=== PATIENT | male | born 1955 | race Caucasian/White ===

== ENCOUNTER → 2021-09-12 07:54 | Outpatient (CLI) | payer MEDICARE, OTHER, SELFPAY ==
[2021-09-12 14:33] LABS: Basophils # 0.1 K/mm3 (0-0.2); Basophils % 0.8 % (0.1-2.0); Eosinophils # 0.2 K/mm3 (0.0-0.4); Eosinophils % 3.2 % (0.1-12.0); Lymphocytes # 1.7 K/mm3 (0.7-4.5); Lymphocytes % 28.2 % (10-50); Mean Corpuscular HGB Conc 31.7 g/dL (31.8-35.4); Mean Corpuscular Volume 101.1 fl (80-94); Monocytes # 0.3 K/mm3 (0.1-1.0); Monocytes % 5.5 % (1.7-9.3); Neutrophils # 3.7 K/mm3 (1.8-7.8); Neutrophils % 62.3 % (37.0-80.0); Platelet Count 254 K/mm3 (142-424); Red Blood Count 4.06 M/mm3 (4.60-6.20); White Blood Count 5.9 K/mm3 (4.8-10.8)
[2021-09-12 14:52] LABS: Hemoglobin A1C 5.4 % (4.0-6.0)
[2021-09-12 15:04] LABS: Alanine Aminotransferase 15 U/L (12-78); Albumin Level 3.9 g/dl (3.5-5.0); Albumin/Globulin Ratio 1.6 (1.1-1.8); Alkaline Phosphatase 50 U/L (38-126); Aspartate Amino Transferase 22 U/L (17-59); Bilirubin,Total 0.4 mg/dl (0.2-1.3); Blood Urea Nitrogen 22 mg/dl (9-20); Carbon Dioxide 24 mmol/L (22.0-30.0); Chloride 107 mmol/L (98-107); Chol/HDL Ratio 3.4 (1-3.5); Cholesterol 190 mg/dl (140-200); Estimated Glomerular Filt Rate 112 ml/min (>60); GFR (African American) 136 ML/MIN (>60); Globulin 2.5 g/dL (1.3-3.2); Glucose 95 mg/dl (74-100); HDL Cholesterol 56 mg/dl (40-60); Sodium 138 mmol/L (136-145); Total Protein,Serum 6.4 g/dl (6.3-8.2); Triglycerides 76 mg/dl (30-150); VLDL Cholesterol 15 mg/dL (0-40)
[2021-09-12 15:15] LABS: Direct LDL Cholesterol 103.43 mg/dL (100-129)
[2021-09-12 15:35] LABS: Thyroid Stimulating Hormone 1.38 uIU/mL (0.465-4.68)
[2021-09-13 14:49] LABS: Vitamin B12 322 pg/mL (239-931)
[2021-09-13 15:10] LABS: Iron 56 ug/dL (49-181)
== END ==
PROVIDERS: Visit Provider Internal Medicine Adolescent Medicine
DX: Z00.00 Encounter for general adult medical examination without abnormal findings (principal); I10 Essential (primary) hypertension; D64.9 Anemia, unspecified; Z13.1 Encounter for screening for diabetes mellitus
CPT/HCPCS: 36415; 80053; 80061; 82607; 82728; 82746; 83036; 83540; 84443; 85025

== ENCOUNTER → 2022-11-13 07:15 | Outpatient (CLI) | payer MEDICARE, OTHER, SELFPAY ==
--- NOTE | 2022-11-13 | CA_ITS ---
APPROVED REPORT Exam: Exercise Treadmill Technologist: Tiny Evans Ht: 5 ft 7 in Wt: 165 lbs BSA: 1.86 m2 HR: 60 bpm BP: 142/82 mmHg Indications: Chest pain Medical History Medications: Lisinopril,,,,, Wandy,,,,, Metamucil,,,,, Stress Test Details Test: Dago HR Resting HR: 72 bpm Max Heart Rate (APMHR): 151.762379 bpm Max HR Achieved: 140 bpm Target HR (85% APMHR): 128.493531 bpm % of APMHR: 92.72 Recovery HR: 72 bpm BP Resting BP: 142.0/82.0 mmHg Max BP: 202.0/76.0 mmHg Recovery BP: 147.0/78.0 mmHg ECG Resting ECG: Sinus bradycardia, PACs Clinical Exercise duration: 07:17 min Highest Stage Achieved: Exercise capacity: 10.1 METs Stress ECG Conclusion Patient exercised 7:17 on Dago Protocol. Test stopped due to shortness of air, fatigue. Symptoms: No chest pain Arrhythmias/Ectopy: Occasional PAC and PVC. ST-T Changes: Allowing for some motion artifact, the ST response to exercise is within normal. Conclusion: Within normal GXT. No imaging. Test Summary REST . . . . . . . Sitting REST . . . . . . . Standing REST 04:43 0.0 0.0 72 . 142/ 82 . . Stage 1 01:00 10.0 1.7 90 . . . . Stage 1 02:00 10.0 1.7 102 . . . . Stage 1 03:00 10.0 1.7 100 . 184/ 62 . . Stage 2 01:00 12.0 2.5 115 . . . . Stage 2 02:00 12.0 2.5 120 . . . . Stage 2 03:00 12.0 2.5 125 . 202/ 76 . . Stage 3 01:00 14.0 3.4 139 . . . . Stage 3 01:17 14.0 3.4 140 . . . Stop exercise at 07:17 RECOVERY 01:00 0.0 0.0 110 . . . . RECOVERY 02:00 0.0 0.0 85 . 123/ 81 . . RECOVERY 03:00 0.0 0.0 78 . 123/ 81 . . RECOVERY 04:00 0.0 0.0 72 . 147/ 78 . . RECOVERY 05:00 0.0 0.0 80 . 147/ 78 . . RECOVERY 05:20 0.0 0.0 80 . 147/ 78 . . Electronically signed by : Bola Gaviria MD 11/15/2022 16:30:58
[2022-11-13 07:43] LABS: Basophils # 0.1 K/mm3 (0-0.2); Eosinophils # 0.3 K/mm3 (0.0-0.4); Eosinophils % 5.7 % (0.1-12.0); Hematocrit 40.3 % (37.0-47.0); Hemoglobin 13.2 g/dL (12.2-16.2); Lymphocytes # 2.5 K/mm3 (0.7-4.5); Lymphocytes % 41.9 % (10-50); Mean Corpuscular HGB Conc 32.6 g/dL (31.8-35.4); Mean Corpuscular Hemoglobin 30.8 pg (27.0-31.2); Mean Corpuscular Volume 94.3 fl (81-99); Mean Platelet Volume 8.4 fl (7.4-10.4); Monocytes # 0.3 K/mm3 (0.1-1.0); Monocytes % 5.5 % (1.7-9.3); Neutrophils # 2.7 K/mm3 (1.8-7.8); Neutrophils % 44.9 % (37.0-80.0); Platelet Count 245 K/mm3 (142-424); Red Blood Count 4.27 M/mm3 (4.20-5.40); Red Cell Distribution Width 13.6 % (11.5-17.5)
[2022-11-13 08:06] LABS: Alanine Aminotransferase 31 U/L (12-78); Albumin Level 4.3 g/dl (3.5-5.0); Albumin/Globulin Ratio 1.8 (1.1-1.8); Alkaline Phosphatase 63 U/L (38-126); Anion Gap 9.4 mEq/L (5-15); Aspartate Amino Transferase 30 U/L (14-36); Bilirubin,Total 0.6 mg/dl (0.2-1.3); Blood Urea Nitrogen 20 mg/dl (7-17); Calcium 8.8 mg/dl (8.4-10.2); Carbon Dioxide 29 mmol/L (22.0-30.0); Chloride 105 mmol/L (98-107); Chol/HDL Ratio 3.6 (1-3.5); Cholesterol 213 mg/dl (140-200); Estimated Glomerular Filt Rate 71 ml/min (>60); GFR (African American) 86 ML/MIN (>60); Globulin 2.4 g/dL (1.3-3.2); Glucose 97 mg/dl (74-100); HDL Cholesterol 60 mg/dl (40-60); Potassium 4.4 mmoL/L (3.5-5.1); Sodium 139 mmol/L (136-145); Total Protein,Serum 6.7 g/dl (6.3-8.2); Triglycerides 117 mg/dl (30-150); VLDL Cholesterol 23 mg/dL (0-40)
[2022-11-13 08:17] LABS: Direct LDL Cholesterol 110.52 mg/dL (100-129)
[2022-11-13 08:36] LABS: Thyroid Stimulating Hormone 2.55 uIU/mL (0.465-4.68)
== END ==
PROVIDERS: PCP Internal Medicine Adolescent Medicine; Visit Provider Internal Medicine Adolescent Medicine
DX: Z00.00 Encounter for general adult medical examination without abnormal findings (principal); R07.9 Chest pain, unspecified; E78.5 Hyperlipidemia, unspecified
CPT/HCPCS: 36415; 80053; 80061; 84443; 85025; 93017

== ENCOUNTER 2023-02-17 15:51 | Emergency (ER) | payer MEDICARE, OTHER, SELFPAY ==
[2023-02-17 15:52] VITALS: BP 147/74; PULSE 91; RESP 18; TEMP 36.9; O2SAT 98; BMI 26.1
--- NOTE | 2023-02-17 16:06 | CT_ITS ---
PROCEDURE INFORMATION: Exam: CT Abdomen And Pelvis With Contrast Exam date and time: 02/17/2023 5:30 PM Age: 68 years old Clinical indication: Abdominal pain; Localized; Left lower quadrant (llq); Additional info: Llq abdominal pain TECHNIQUE: Imaging protocol: Computed tomography of the abdomen and pelvis with contrast. Radiation optimization: All CT scans at this facility use at least one of these dose optimization techniques: automated exposure control; mA and/or kV adjustment per patient size (includes targeted exams where dose is matched to clinical indication); or iterative reconstruction. Contrast material: ISOVUE; Contrast volume: 75 ml; Contrast route: IV; REPORTING DATA: Count of CT and Cardiac NM exams in prior 12 months: This patient has received 0 known CTs and 0 known cardiac nuclear medicine studies in the 12 months prior to the current study. COMPARISON: ABDPELW CT ABD PELVIS W/ CONTRAST 03/17/2017 12:02 PM FINDINGS: Liver: Normal. No mass. Gallbladder and bile ducts: Normal. No calcified stones. No ductal dilation. Pancreas: Normal. No ductal dilation. Spleen: Normal. No splenomegaly. Adrenal glands: Normal. No mass. Kidneys and ureters: Multiple parapelvic cysts involving bilateral kidneys. No hydronephrosis. Stomach and bowel: Severe wall thickening of the sigmoid colon and distal descending colon with surrounding inflammatory changes concerning for colitis. No small bowel obstruction. Appendix: Appendectomy. Intraperitoneal space: Unremarkable. No free air. No significant fluid collection. Vasculature: Unremarkable. No abdominal aortic aneurysm. Lymph nodes: Unremarkable. No enlarged lymph nodes. Urinary bladder: Unremarkable as visualized. Reproductive: Unremarkable as visualized. Bones/joints: Unremarkable. No acute fracture. Soft tissues: Unremarkable. IMPRESSION: Severe colitis in the sigmoid and distal descending colon. COMMENTS: Consistent with the [employer]'s Incidental Findings Committee white paper (J Am Toño Radiol 2018): Any incidental renal lesion less than 1 cm or classified as too small to characterize, or any incidental cystic renal lesion characterized as simple-appearing, is likely benign. No follow-up imaging is recommended for these lesions per consensus recommendations based on imaging criteria.
[2023-02-17 16:12] LABS: Microscopic, Urine URINE MICROSCOPIC (MICROSCOPIC)
[2023-02-17 16:22] LABS: Appearance,Urine CLEAR (Clear); Blood, Urine Negative (Negative); Color,Urine YELLOW (Yellow); Glucose,Urine (UA) Negative (Negative); Ketones,Urine 1+ (Negative); Leukocyte Esterase,Urine Negative (Negative); Nitrate,Urine Negative (Negative); PH,Urine 7.5 (5.0-8.5); Protein,Urine 1+ (Negative); Specific Gravity, Urine 1.025 (1.005-1.030)
--- NOTE | 2023-02-17 16:25 | HMH.EDGENADL ---
Discharge Plan Disposition Patient Disposition: Home, Self-Care Prescriptions Prescriptions: New ciprofloxacin HCl 500 mg tablet 500 mg PO BID Qty: 20 0RF Referrals Follow up/Referrals: Oliva Jarrell PA [Primary Care Provider] - See instructions Clinical Impressions Clinical Impression: Diverticulitis Instructions Patient Instructions: DI for Acute Abdominal Pain Discharge ED Provider: Gideon Segura General Adult HPI General Chief complaint: Abdominal Pain Stated complaint: abd pain, sent by Oliva Jarrell Time Seen by Provider: 02/17/23 16:00 Mode of Arrival: Ambulatory Source of Information: Patient Limitations: No Limitations Description of Symptoms (Recalled from ER Triage Doc. by RN): pt reports to ED c/o abdominal pain that started today. pt states she has a hx of diverticulitis. pt reports diarrhea episode on . pt states she went to her PCP for right hip pain and was sent to ED for her abdominal pain. History of Present Illness HPI narrative: 68-year-old female presents with left lower quadrant abdominal pain. She has history of diverticulitis in this area and thinks that is related however she was to rule out perforation. She is requesting a CT abdomen pelvis. No vaginal bleeding discharge no dysuria or hematuria. No diarrhea or vomiting. Pain is constant intermittent Related Data Previous Rx's Medication Instructions Recorded ciprofloxacin HCl 500 mg tablet 500 mg PO BID #20 tabs 02/17/23 Allergies Allergy/AdvReac Type Severity Reaction Status Date / Time No Known Allergies Allergy Unverified 08/12/17 15:12 [facility] Disclaimer: The information contained in this section may have been updated after the patient was seen, as this information can be updated by other users. Social History Smoking Status: Never smoker alcohol intake: never current occupational status: employed Travel in the last 8 weeks: Inside the [employer] ROS Obtained: Yes All systems reviewed & no additional complaints except as documented Constitutional Constitutional: Denies fatigue Eyes Eyes: Denies diplopia ENT Ears, Nose, Mouth, and Throat: Denies dizziness and Denies dysphagia Cardiovascular Cardiovascular: Denies leg edema Respiratory Respiratory: Denies cough Gastrointestinal Gastrointestingal: Denies diarrhea or dysphagia Genitourinary Female Genitourinary: Denies dysuria Musculoskeletal Musculoskeletal: Denies back pain Integumentary/Breasts Skin/Breast: Denies jaundice Neurologic Neurologic: Denies dizziness Endocrine Endocrine: Denies fatigue Hematologic/Lymphatic Henatologic/Lymphatic: Denies easy bleeding Allergic/Immunologic Allergic/Immunologic: Denies urticaria Physical Exam General General appearance: alert and in no apparent distress Eye Eye exam: Present PERRL and EOMI ENT ENT exam: Present normal exam and normal oropharynx Neck Neck exam: Present normal inspection Chest Chest inspection: Present symmetric chest wall rise Respiratory Respiratory exam: Present normal lung sounds bilaterally; Absent respiratory distress Cardiovascular Cardiovascular exam: Present regular rate and normal rhythm Abdominal Exam Abdominal exam: Present soft and tenderness (Left lower quadrant abdominal tenderness); Absent distention, guarding, rebound, Ramirez's sign or tenderness at McBurney's Point Back Exam Back exam: Present normal inspection Neurological Exam Neurological exam: Present alert and oriented X3 Psychiatric Psychiatric exam: Present normal affect and normal mood Skin Skin exam: Present warm, dry and intact Lymphatic Lymphatic Findings: no adenopathy Medical Decision Making Medical Records Medical records reviewed: Yes I reviewed the patient's medical records. Toney Inquiry Pt receiving controlled substance: No Toney was queried for this patient: No Vital Signs: 02/17/23 15:52 02/17/23 16:53 02/17/23 18:00 Temperature 98.4 F Tempera
[2023-02-17 16:28] LABS: Basophils # 0.1 K/mm3 (0-0.2); Basophils % 0.5 % (0.1-2.0); Eosinophils # 0.1 K/mm3 (0.0-0.4); Eosinophils % 1.2 % (0.1-12.0); Hematocrit 41.9 % (37.0-47.0); Hemoglobin 13.3 g/dL (12.2-16.2); Lymphocytes % 17.5 % (10-50); Mean Corpuscular HGB Conc 31.6 g/dL (31.8-35.4); Mean Corpuscular Hemoglobin 29.9 pg (27.0-31.2); Mean Corpuscular Volume 94.4 fl (81-99); Mean Platelet Volume 8.5 fl (7.4-10.4); Monocytes # 0.7 K/mm3 (0.1-1.0); Monocytes % 5.8 % (1.7-9.3); Neutrophils # 8.4 K/mm3 (1.8-7.8); Platelet Count 282 K/mm3 (142-424); Red Blood Count 4.44 M/mm3 (4.20-5.40); White Blood Count 11.2 K/mm3 (4.8-10.8)
[2023-02-17 16:34] LABS: Bacteria,Urine Trace /lpf; Bilirubin,Urine 1+ (Negative); Mucus,Urine Trace /lpf; Squamous Epithelial Cell,Urine Occasional #/hpf (0-5)
[2023-02-17 16:53] VITALS: BP 133/63; PULSE 91; RESP 18; O2SAT 100
[2023-02-17 16:55] LABS: Chloride 98 mmol/L (98-107); Sodium 136 mmol/L (136-145)
[2023-02-17 16:56] LABS: Potassium 4.4 mmoL/L (3.5-5.1)
[2023-02-17 16:58] LABS: Alanine Aminotransferase 21 U/L (12-78); Albumin Level 4.1 g/dl (3.5-5.0); Albumin/Globulin Ratio 1.3 (1.1-1.8); Alkaline Phosphatase 69 U/L (38-126); Anion Gap 14.4 mEq/L (5-15); Aspartate Amino Transferase 25 U/L (14-36); Bilirubin,Total 0.5 mg/dl (0.2-1.3); Blood Urea Nitrogen 12 mg/dl (7-17); Calcium 8.6 mg/dl (8.4-10.2); Carbon Dioxide 28 mmol/L (22.0-30.0); Creatinine Clearance Estimated 61 mL/min (50-200); Estimated Glomerular Filt Rate 71 ml/min (>60); GFR (African American) 86 ML/MIN (>60); Globulin 3.1 g/dL (1.3-3.2); Glucose 118 mg/dl (74-100); Lipase 29 U/L (23-300); Total Protein,Serum 7.2 g/dl (6.3-8.2)
--- NOTE | 2023-02-17 17:24 | PC.NURSE ---
PT GOING TO CT
[2023-02-17 18:00] VITALS: BP 128/54; PULSE 84; RESP 16; O2SAT 97
[2023-02-17 18:49] VITALS: BP 117/61; PULSE 78; RESP 18; TEMP 36.8; O2SAT 97
== END 2023-02-17 18:50 | disposition home or self-care (01) ==
PROVIDERS: Emergency Provider Emergency Medicine; PCP Physician Assistant
DX: R10.32 Left lower quadrant pain (principal)
CPT/HCPCS: 74177; 80053; 81001; 83690; 85025; 96361; 96374; 96375; 99285; J2405; Q9967

== ENCOUNTER 2023-03-20 17:00 | Outpatient (RCR) | payer MEDICARE, OTHER, SELFPAY ==
--- NOTE | 2023-03-03 16:27 | HMH.PTOPEV ---
PT Outpatient Evaluation Rehab PT Outpatient Evaluation Start: 03/03/23 15:07 Freq: Status: Active Protocol: Document 03/03/23 15:07 PDESEROUX (Rec: 03/03/23 16:27 PDESEROUX [id number]) E-signed By Cyrus Etienne, PT Outpatient Therapy Subjective History Subjective History Pt. is a 68 year old female who presents to [facility] Outpatient Physical Therapy Services in [place] for the initial evaluation this date(03/03/23) w/ c/o subacute and constant RLE acetabulofemoral jt. P! and stiffness w/ intermittent sharp and shooting P! into the RLE of insidious onset a few months ago. Pt. reports having a constant dull ache over posterior lateral buttock region that stays around 1-2/ 10, however, states P! jumps to a 8/10 w/ certain activities. Pt. reports symptoms worsen w/ prolonged sitting/driving and using the RLE back/forth w/ gas/brake pedal. Pt. also reports symptoms worsen while assisting daughter w/ transitional movements. 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 Pt. denies having radiograph nor MRI images for current complaint. Pt. reports having a CT scan recently addressing diagnosis of Diverticulitis that captured some of the hip jt., however, pt. reports came back negative . Pt. denies having recent injections for current complaint. Current medications includes Steroids, Ibuprofen PRN, and Lisinopril. PMH includes chronic hx. of LBP!, Diverticulitis, S/P colon resection pre-cancerous cells , Tonsillectomy, RLE ankle/ft
== END 2023-05-02 07:55 | disposition home or self-care (01) ==
LOC: PT 17:00
PROVIDERS: PCP Physician Assistant; Visit Provider Nurse Practitioner Family
DX: M25.551 Pain in right hip (principal)
CPT/HCPCS: 97010; 97014; 97110; 97140; 97163; 97530; G0283

== ENCOUNTER → 2023-04-24 10:53 | Outpatient (CLI) | payer MEDICARE, OTHER, SELFPAY ==
--- NOTE | 2023-04-24 10:59 | XR_ITS ---
FINAL REPORT CLINICAL HISTORY: LEFT FOOT PAIN FINDINGS: Left foot Three views were obtained. There is no acute fracture or dislocation. There is an osteophyte along the dorsal aspect of the distal 1st metatarsal. There are [id number] hypertrophic changes of the 1st metatarsophalangeal joint. Small plantar spur is identified. IMPRESSION: Degenerative changes as detailed above. Reviewed, Interpreted and Dictated by Frankie Pelaez MD Transcribed by Jennifer Vidales Authenticated and [facility]
== END ==
PROVIDERS: PCP Internal Medicine Adolescent Medicine; Visit Provider Nurse Practitioner Family
DX: M79.672 Pain in left foot (principal)
CPT/HCPCS: 73630

== ENCOUNTER 2024-04-13 13:51 | Outpatient (CLI) | payer MEDICARE, OTHER, SELFPAY ==
--- NOTE | 2024-04-13 14:35 | XR_ITS ---
FINAL REPORT CLINICAL HISTORY: PAIN FINDINGS: Left hip Three views were obtained. There is no acute fracture or dislocation. The joint spaces appear normal. No soft tissue abnormality is identified. IMPRESSION: No acute process. Reviewed, Interpreted and Dictated by Frankie Pelaez MD Transcribed by Jennifer Vidales Authenticated and [facility]
--- NOTE | 2024-04-13 14:35 | XR_ITS ---
FINAL REPORT CLINICAL HISTORY: lower back pain FINDINGS: LUMBAR SPINE Five views demonstrate no acute fracture. There is moderate facet sclerosis in the lower lumbar spine. There is no malalignment. IMPRESSION: Degenerative changes as above. Reviewed, Interpreted and Dictated by Frankie Pelaez MD Transcribed by Jennifer Vidales Authenticated and . [facility]
[2024-04-13 14:45] LABS: Basophils # 0.1 K/mm3 (0-0.2); Basophils % 1.8 % (0.1-2.0); Eosinophils # 0.2 K/mm3 (0.0-0.4); Eosinophils % 3.3 % (0.1-12.0); Hematocrit 40.8 % (37.0-47.0); Lymphocytes # 2.1 K/mm3 (0.7-4.5); Lymphocytes % 42.5 % (10-50); Mean Corpuscular Hemoglobin 32.3 pg (27.0-31.2); Mean Platelet Volume 9.1 fl (7.4-10.4); Monocytes # 0.4 K/mm3 (0.1-1.0); Monocytes % 7.4 % (1.7-9.3); Neutrophils # 2.2 K/mm3 (1.8-7.8); Neutrophils % 44.9 % (37.0-80.0); Platelet Count 238 K/mm3 (142-424); Red Blood Count 4.04 M/mm3 (4.20-5.40); Red Cell Distribution Width 13.4 % (11.5-17.5); White Blood Count 4.9 K/mm3 (4.8-10.8)
[2024-04-13 15:15] LABS: Chloride 108 mmol/L (98-107); Potassium 4.8 mmoL/L (3.5-5.1); Sodium 138 mmol/L (136-145)
[2024-04-13 15:17] LABS: Blood Urea Nitrogen 20 mg/dl (7-17); Estimated Glomerular Filt Rate 71 ml/min (>60); GFR (African American) 86 ML/MIN (>60)
[2024-04-13 15:18] LABS: Anion Gap 7.8 mEq/L (5-15); Calcium 8.4 mg/dl (8.4-10.2); Carbon Dioxide 27 mmol/L (22.0-30.0); Glucose 87 mg/dl (74-100)
[2024-04-13 15:39] LABS: 25-OH Vitamin D, Total 35.1 ng/mL (30-100)
== END 2024-04-13 23:59 | disposition home or self-care (01) ==
PROVIDERS: PCP Internal Medicine Adolescent Medicine; Visit Provider Internal Medicine Adolescent Medicine
DX: E55.9 Vitamin D deficiency, unspecified (principal); M25.552 Pain in left hip
CPT/HCPCS: 36415; 72110; 73502; 80048; 82306; 85025

== ENCOUNTER 2024-05-25 08:00 | Outpatient (RCR) | payer MEDICARE, OTHER, SELFPAY ==
--- NOTE | 2024-04-28 09:31 | HMH.PTOPEV ---
PT Outpatient Evaluation Rehab PT Outpatient Evaluation Start: 04/28/24 08:02 Freq: Status: Active Protocol: Document 04/28/24 08:02 NIKOLAY (Rec: 04/28/24 09:31 [email or web address] [id number]) E-signed By Cyrus Etienne, PT Outpatient Therapy Subjective History Subjective History Pt. is a 69 year old female who presents to [facility] Outpatient Physical Therapy Services in [place] for the initial evaluation this date( 04/28/24) w/ c/o subacute on chronic and constant R-sided cervical, arm, and hand P!, stiffness, and numbness/ tingling of insidious onset that has progressively been getting worse since March of this year. Pt. denies trauma as origin of symptom complaint . Pt. reports initial onset of symptoms were in November. Pt. 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 Pt. reports having two massages that provided some symptom relief, however, reports symptoms worsened again in January-March secondary to having to care for her daughter w/ a TBI. Pt. reports having difficulty gripping objects secondary to her hand feeling stiff. Pt. also reports having difficulty w/ having to write w/ the RUE , or operate steering wheel for a prolonged period of time w/ the RUE secondary to weak and heavy complaint. Pt. reports the pain will also wake her up at night. Pt. denies having injections for current complaint, denies having any imaging taken at this time. Pt. reports RTMD PRN. Pt. c/o subacute and intermittent LLE hip and leg P !, stiffness, and numbness/ tingling of insidious onset 1 month ago. Pt. reports symptoms have gotten better recently. Pt. reports symptoms are fine when she is up and standing, however, vocalizes symptoms worsen w/ sitting at the end of the day. Pt. describes symptoms as a flutter that will radiate into the LLE when she sits. Pt . reports having some symptom relief w/ previous HEP she was given after her last Physical Therapy that seemed to provide her w/ symptom relief. Recent diagnostic imaging indicates degenerative changes in the lumbar spine per pt. report. Pt. denies having any injections for current complaint. Current medications include Lisinopril, Fiber, Wandy, and Turmeric. PMH includes S/P BUE CTS x2, Hypertension, S/P Colon Polypectomy, and a Tonsillectomy. New diagnosis of cancer in past 12 No months? Chief Complaint Pain,Spasms,Stiff,Paresthesia, Weakness,Decreased Investment Representative Strength Symptom Type Ache,Dull,Stabbing,Burning, Numbness,Tingling,Shooting Symptoms Relieved By Nothing Symptoms Aggravated By Supine,Sitting,Physical Activity,Twisting,Lifting Prior Functional Limitations None Current Functional Limitations Reaching,Lifting,Desk Work/ Reading,Driving,Sleeping, Sitting,Recreation Activity Symptom Description Constant but Variable,Activity Dependent Level of pain today (0-10) 4 Pain scale - at its best (0-10) 2 Pain scale - at its worst (0-10) 9 Cervical Eval Palpation Cervical Muscles R Cervical Paraspinal,R Suboccipital,R SCM,R CT Junction Cervical/Thoracic Palpation Findings Tenderness,Spasm,Trigger Point Posture Head/C-Spine Posture Sitting Position Flexed Head/C-Spine Posture Standing Position Flexed Flexibility Deficits Upper Trapezius Muscle Length (R) Severe Tightness Levaetor Scapulae Muscle Length (R) Severe Tightness Scalene Group Muscle Length (R) Severe Tightness Sternocleidomastoid Muscle Length (R) Severe Tightness Pectoralis Major Muscle Length (R) Severe Tightness Pectoralis Minor Muscle Length (R) Severe Tightness Passive Joint Mobility Cervical PIVM Dec: R OA L OA R AA L AA R C2/3 L C2/3 R C3/4 L C3/4 R C4/5 L C4/5 R C5/6 L C5/6 WNL: R C6/7 L C6/7 R C7/T1 L C7/T1 AROM Cervical Spine Extension Active Range of 41 Motion (degrees) Cervical Spine Flexion Active Range of 47 Motion (degrees) Cervical Spine Right Lateral Flexion 25 Active Range of Motion (degrees) Cervical Spine Left Lateral Flexion 40 Active Range of Motion (degrees) Cervical Spine Right Rotation Active 45 Range of Motion (degrees) Cervical Spine Left Rotation Active 67 Range of Motion (degrees) MMT Right Deltoid (C5) 3 Fair Biceps Brachii Strength Grade 3+ Fair+ Wrist Extension Strength Grade 4 Good Triceps Brachii Strength Grade 3+ Fair+ Wrist Flexion Strength Grade 4 Good Extensor Pollicis Longus Strength Grade 4 Good Finger Abduction Strength Grade 4 Good Altered Sensation Upper extremity Dermatomes C4,C5,C6,C7 Comment decreased light touch sensation in above patterns for RUE compared to LUE Special Test C-Spine Foraminal Compression ([place]) Positive Right Test C-spine Verterbral Accessory Movements Central P/A [place],Right P/A that Elicit Symptoms [place] C-Spine Foraminal Distraction Test Positive C-Spine Compression Test Positive Right Lumbopelvic Eval Posture Thoracic Spine Posture Standing Position Neutral Lumbar Spine Posture Standing Position Neutral Assistive device Assistive Devices None / NA Gait Observation General Gait Pattern Observation No Deviations/Normal Palapation tenderness bilateral lumbar spinal tenderness Yes Lumbar/Sacral Palpation Overall Comment grade 3 +TTP to TTP assessment above Accessory Movement L-spine Vertebrae Accessory Movements Central P/A [place],Left P/A that Elicit Symptoms [place] L5 bilateral S1 bilateral Range of Motion Lumbar Spine Active Flexion Range of 69 Motion (degrees) Lumbar Spine Active Extension Range of 29 Motion (degrees) Left Lumbar Spine Lateral Flexion Active 17 Range of Motion (degrees) Right Lumbar Spine Lateral Flexion 15 Active Range of Motion (degrees) Lumbar Spine ROM Limitations Soft Tissue Tightness,Muscle Weakness,Muscle Tone,Pain Manual Muscle Test Bilateral Knee Extension Strength Grade 4 Good Knee Flexion Strength Grade 4 Good Hip Flexion Strength Grade 4 Good Hip Abduction Strength Grade 4 Good Hip Adduction Strength Grade 4 Good Hip External Rotation Strength Grade 4 Good Hip Internal Rotation Strength Grade 4 Good Hip Extension Strength Grade 4 Good Gluteus Gómez Strength Grade 4 Good Extensor Hallucis Longus Strength Grade 4 Good Ankle Dorsiflexion Strength Grade 4 Good Gastronemius/Soleus Strength Grade 4 Good Altered Sensation Comment vocalizes WNL in BLEs grossly Special Tests Hip Piriformis Test Negative Left,Negative Right Sciatic Nerve Tension Test Negative Left,Negative Right Lumbar Long Dixon Distraction Test/Manual Positive Traction Outpatient Therapy Assessment Impairments Problems/Impairmments Palpation Tenderness,Impaired Range of Motion,Impaired Strength,Impaired Sitting, Impaired Driving,Impaired Lifting,Impaired Household Care,Impaired Recreational Activities,Impaired Work Activities,Impaired Desk/ Computer Activities,Subjective C/O Pain,Impaired Self Care/ Self Management Prognosis Rehab Potential Good Comment w/ HEP compliancy Clinical Impression Consistent with Diagnosis Yes Consistent with cervical radiculopathy, R, LLE hip Short Term Goals Number of Weeks 2 Decreased Palpation Tenderness Yes: grade 1-2 +TTP to TTP assessment above Decrease Subjective C/O Pain Yes: worse:01/01 Patient to be Ind w/ HEP Yes Document Controller Goals Number of Weeks 4-6 Decreased Palpation Tenderness Yes: grade 1 +TTP to TTP assessment above Increase Range of Motion Yes: cervical spine ROM WFL grossly Increase Strength Yes: 4+ to 5/5 RUE myotomal muscle strength grossly Increase Ability to Sit Yes Increase Ability to Drive/Ride in Car Yes Improve Tolerance to Desk/Computer Yes: Pt. will be able to write Activities w/ RUE w/o difficulty Improve Neck Disability Index Score Yes Improve Quick Dash Score Yes Improve LEFI Score Yes Decrease Subjective C/O Pain Yes: worse:1-10/04 Improve Self Care/Self Management Yes: Pt. will be able to sleep through the night w/o difficulty Patient to be Ind w/ Advanced HEP Yes Outpatient Therapy Plan of Care Treatment Plan May Include Therapeutic Exercise Including Home Yes Exercise Program Manual Therapy Techniques Yes Neuromuscular Re-education Yes Therapeutic Activities to Return to Yes Previous Functional/Work Level ADL/Self Care Education Yes Mechanical Traction Yes Dry Needling Yes Thermal Modalities Yes Electrical Stimulation Yes Ultrasound/Phonophoresis Yes Iontophoresis Yes Vasopneumatic Compression Pump Yes Massage Yes Eval/Re-Eval Yes Frequency Times per week 2 Duration Number of Weeks 4-6 Addendums This patient is a candidate for social No or vocational rehab? Patient/Guardian verbally acknowledges Yes understanding of treatment program and consents to further treatment? Patient/Guardian verbally acknowledges Yes understanding of diagnosis, prognosis and goals for treatment? Eval Complexity PT Charges 12069 - Moderate Complexity Shoulder/Elbow Eval Shoulder Objective Measurements Elbow Objective Measurements PHYSICIAN CERTIFICATION: I certify the specified therapy services for Emily Huffman are required, authorized, and reviewed every 30 days.
== END 2024-07-06 15:43 | disposition home or self-care (01) ==
LOC: PT 08:00
PROVIDERS: Visit Provider Internal Medicine Adolescent Medicine
DX: M25.552 Pain in left hip (principal); M25.511 Pain in right shoulder; M54.2 Cervicalgia
CPT/HCPCS: 97110; 97140; 97163; 97530

== ENCOUNTER 2024-06-30 08:28 | Outpatient (CLI) | payer MEDICARE, OTHER, SELFPAY ==
--- NOTE | 2024-06-30 08:31 | MR_ITS ---
FINAL REPORT CLINICAL HISTORY: CERVICALGIA. RIGHT ARM PAIN. NO INJURY OR TRAUMA. COMPARISON: None FINDINGS: Multiplanar MR imaging of the cervical spine was performed without contrast. On the sagittal T2-weighted images, disc degeneration is seen at multiple levels. There is no evidence of fracture. There is mild anterolisthesis of C4 on C5 and C5 on C6. There is mild retrolisthesis of C6 on C7 The cervical spinal cord has an unremarkable appearance without evidence of mass, edema or syrinx. No significant canal stenosis is identified. The cervicomedullary junction is normal. C2-3: There is no significant canal stenosis or neural foraminal narrowing. C3-4: Left uncovertebral osteophyte. Moderate left neuroforaminal narrowing C4-5: Annular disc bulge. Uncovertebral osteophytes. Mild bilateral neuroforaminal narrowing. C5-6: Annular disc bulge. Mild bilateral neuroforaminal narrowing. C6-7: Disc osteophyte complex. Severe right and moderate left neuroforaminal narrowing. C7-T1: There is no significant canal stenosis or neural foraminal narrowing. IMPRESSION: Multilevel degenerative disc disease as above. Reviewed, Interpreted and Dictated by Rudolph Badillo III, MD Transcribed by Eva Coppola Authenticated and [facility]
== END 2024-06-30 23:59 | disposition home or self-care (01) ==
LOC: RAD 08:28
PROVIDERS: PCP Internal Medicine Adolescent Medicine; Visit Provider Nurse Practitioner Family
DX: M54.2 Cervicalgia (principal)
CPT/HCPCS: 72141

== ENCOUNTER 2024-08-24 14:00 | Outpatient (RCR) | payer MEDICARE, OTHER, SELFPAY | END 2024-08-24 23:59 | disposition home or self-care (01) | LOC: PT 14:00 | PROVIDERS: Visit Provider Nurse Practitioner Family | DX: M54.12 Radiculopathy, cervical region (principal) | CPT/HCPCS: 97110; 97112; 97140; 97163 ==

== ENCOUNTER 2024-09-06 10:00 | Outpatient (RCR) | payer MEDICARE, OTHER, SELFPAY | END 2024-09-07 17:23 | disposition home or self-care (01) | LOC: PT 10:00 | PROVIDERS: PCP Internal Medicine Adolescent Medicine; Visit Provider Nurse Practitioner Family | DX: M54.12 Radiculopathy, cervical region (principal) | CPT/HCPCS: 97110; 97112; 97140 ==